=== PATIENT | male | born 1960 | race Caucasian/White ===

== ENCOUNTER 2016-12-21 08:03 | Emergency (ER) | payer OTHER ==
[2016-12-21 08:19] VITALS: BP 139/83
[2016-12-21] MEDS ORDERED: Lidocaine 1% 5ml(IM or SUTURE)(PAIN CLINIC) ONE (08:29)
--- NOTE | 2016-12-21 09:11 | ED Physician Documentation ---
Abscess - HISTORIAN Historian: patient, spouse - HPI Stated Complaint: Pain/swelling/redness to site Lt Posterior upper thigh Chief Complaint: Abscess Additional Information: EXABERATION-RECURRENCE ABSCESS LT UPPER INNER THIGH 4" below groin. exab std about 1 week ago Onset: days ago (1 wk) Timing: worse Duration: worse (exp when ambulates-rubs against other leg) Location: LLE Quality: painful, burning Identified Cause?: Yes (recurrent pt thinks std w/ingrown hair several month ago. has spon drained) - ROS CONST: no problems CVS/RESP: none EYES/ENT: none GI/: none MS/SKIN/LYMPH: other (cc only) NEURO/PSYCH: none - PAST HX Past History: hypertension Other History: other (vasectomy) Allergies/Adverse Reactions: Allergies Allergy/AdvReac Type Severity Reaction Status Date / Time No Known Allergies Allergy Verified 12/21/16 08:20 Home Medications: Ambulatory Orders Medication Instructions Recorded Cephalexin [Keflex] 500 mg PO QID #40 capsule 12/21/16 - SOCIAL HX Smoking History: greater than 1 pack/day Alcohol Use: none Drug Use: none - FAMILY HX Family History: none - VITAL SIGNS Vital Signs: Vital Signs Temp Pulse Resp BP Pulse Ox 97.9 F 56 L 18 139/83 97 12/21/16 08:03 12/21/16 08:03 12/21/16 08:03 12/21/16 08:03 12/21/16 08:03 - REVIEWED ASSESSMENTS Nursing Assessment Reviewed: Yes Vitals Reviewed: Yes Procedures Site: lt upper inner thigh abscess i and d under local anes. 3/4 in incision cs I & D Procedure: betadine prep, sterile drapes applied Progress - Results/Orders Results/Orders: abscess cavity w/ betadine inserted approx 6" iodoform gauze-sterile dressing- instructions re after care and daily 1/2 " shortening of drain. keflex - kayleeit c alphonso sOscar ED Results Lab/Radiology - Orders Orders: ED Orders Category Date Time Status Lidocaine 1% 5ml(IM or SUTURE) [Xylocaine] Med 12/21/16 08:29 Discontinued 50 mg .ROUTE .STK-MED ONE Abscess Physical Exam - EXAM General Appearance: mild distress Skin: warm,dry, pointing fluctuant with erythema. No: cyanotic, diaphoretic Character: macular, papular (abscess approx 1" diameter fluctuant but not pointing) Symptoms: tenderness Extremities: no edema EENT: eyes nml inspection Respiratory: no resp distress, breath sounds normal CVS: reg. rate & rhythm, heart sounds nml Abdomen: non-tender Neuro/Psych: oriented x3, CN's nml as tested, motor nml, sensation nml, mood/ affect nml Discharge Clincal Impression: abscess lt upper inner thigh-I and D, HTN (hypertension) Prescriptions: Cephalexin [Keflex] 500 mg PO QID #40 capsule Home Medications: Ambulatory Orders Cephalexin [Keflex] 500 mg PO QID #40 capsule 12/21/16 Condition: Good Disposition: 01 HOME, SELF-CARE Decision to Admit: NO Decision Time: 09:21
[2016-12-21] MEDS: Lidocaine 1% 5ml(IM or SUTURE)(PAIN CLINIC) IJ ONE (09:24)
== END 2016-12-21 09:05 | disposition home or self-care (01) ==
LOC: ED 08:03
DX: L02.416 Cutaneous abscess of left lower limb (principal); I10 Essential (primary) hypertension
CPT/HCPCS: 10060; 87070; 99283